=== PATIENT | male | born 1960 | race Caucasian/White ===

== ENCOUNTER 2019-07-06 07:17 | Day surgery (SDC) | payer MEDICAID ==
[2019-07-01 16:01] LABS: BASOPHILS # (AUTO) 0.1 X10'3 (0-0.2); BASOPHILS % (AUTO) 0.6 % (0-1); EOSINOPHILS # (AUTO) 0.5 X10'3 (0-0.9); LYMPHOCYTES # (AUTO) 2.4 X10'3 (1.1-4.8); LYMPHOCYTES % (AUTO) 19.7 % (21-51); MEAN CORPUSCULAR HEMOGLOBIN 29.9 PG (27.0-31.0); MEAN CORPUSCULAR HGB CONC 33.2 g/dL (33.0-36.5); MEAN CORPUSCULAR VOLUME 89.9 FL (78-98); MEAN PLATELET VOLUME 7.4 FL (7.4-10.4); MONOCYTES % (AUTO) 8.5 % (2-12); NEUTROPHILS # (AUTO) 8.1 X10'3 (1.8-7.7); NEUTROPHILS % (AUTO) 67.2 % (42-75); PRE OP HEMATOCRIT 42.9 % (42.0-52.0); PRE OP HEMOGLOBIN 14.3 g/dL (14.0-17.9); PRE OP PLATELET COUNT 329 X10'3 (140-440); RED BLOOD COUNT 4.77 X10'6 (4.70-6.10); RED CELL DISTRIBUTION WIDTH 12.3 % (11.5-14.5)
[2019-07-01 16:15] LABS: ALBUMIN 3.9 G/DL (3.4-5.0); ALBUMIN/GLOBULIN RATIO 1.1 (1.1-1.5); ALKALINE PHOSPHATASE 94 IU/L (46-116); BLOOD UREA NITROGEN 19 MG/DL (7-18); BUN/CREATININE RATIO 20.7 (5.4-32.0); CALCIUM 9.3 MG/DL (8.5-10.1); CHLORIDE 101 MMOL/L (99-107); CREATININE 0.92 MG/DL (0.60-1.10); PRE OP ALT 19 U/L (30-65); PRE OP ANION GAP 4 (8-16); PRE OP AST 14 U/L (10-37); PRE OP BILIRUB, TOTAL 0.6 MG/DL (0.0-1.0); PRE OP POTASSIUM 3.9 MMOL/L (3.4-5.1); PRE OP SODIUM 138 MMOL/L (135-145); TOTAL CARBON DIOXIDE 32.8 MMOL/L (24-32); TOTAL PROTEIN 7.6 G/DL (6.4-8.2); eGFR 85 ML/MIN
[2019-07-01 16:17] LABS: PRE OP GLUCOSE 242 MG/DL (70-104)
[2019-07-06] VITALS (12 sets, daily range): BP systolic 115–137; BP diastolic 69–91
[~2019-07-06] VITALS: Ht 162.6 cm; Wt 64.4 kg
[~2019-07-06 07:17] MED LIST: ACET-3284 PO; ATOR40TA72 PO; IBUP-1986 PO; LISI1TAB28 PO; METF-438 PO; PROM25TA14 PO; VANCOMYCIN INJ 1000 MG in NORMAL SALINE 250ml IV.SOLN IV ONE; albuterol 2.5 MG/3 ML nebule NEB ONE; cefazolin/dext.iso 2gm/100ml 100 ML IV ONE; famotidine 20mg tablet PO ONE; ringers solution, lacted 1,000 ML IV SCH
[2019-07-06 08:13] LABS: BASOPHILS % (AUTO) 0.4 % (0-1); EOSINOPHILS # (AUTO) 0.3 X10'3 (0-0.9); EOSINOPHILS % (AUTO) 2.8 % (0-6); HEMATOCRIT 40.9 % (42.0-52.0); HEMOGLOBIN 13.8 g/dl (14.0-17.9); LYMPHOCYTES % (AUTO) 20.1 % (21-51); MEAN CORPUSCULAR HEMOGLOBIN 30.2 PG (27.0-31.0); MEAN CORPUSCULAR HGB CONC 33.7 g/dL (33.0-36.5); MEAN CORPUSCULAR VOLUME 89.5 FL (78-98); MEAN PLATELET VOLUME 7.3 FL (7.4-10.4); MONOCYTES # (AUTO) 0.8 X10'3 (0-0.9); MONOCYTES % (AUTO) 8.5 % (2-12); NEUTROPHILS # (AUTO) 6.8 X10'3 (1.8-7.7); NEUTROPHILS % (AUTO) 68.2 % (42-75); PLATELET COUNT 267 X10'3 (140-440); RED BLOOD COUNT 4.57 X10'6 (4.70-6.10); RED CELL DISTRIBUTION WIDTH 12.2 % (11.5-14.5); WHITE BLOOD COUNT 9.9 X10'3 (4.5-11.0)
[2019-07-06 08:25] LABS: ALANINE AMINOTRANSFERASE 17 U/L (12-78); ALBUMIN 3.8 G/DL (3.4-5.0); ALBUMIN/GLOBULIN RATIO 1.2 (1.1-1.5); ALKALINE PHOSPHATASE 84 IU/L (46-116); ANION GAP 7 (8-16); ASPARTATE AMINO TRANSFERASE 14 U/L (10-37); BILIRUBIN,TOTAL 0.8 MG/DL (0.1-1.0); BLOOD UREA NITROGEN 24 MG/DL (7-18); BUN/CREATININE RATIO 23.8 (5.4-32.0); CALCIUM 9.1 MG/DL (8.5-10.1); CHLORIDE 102 MMOL/L (99-107); CREATININE 1.01 MG/DL (0.60-1.10); GLUCOSE 205 MG/DL (70-104); POTASSIUM 4.5 MMOL/L (3.5-5.1); SODIUM 136 MMOL/L (135-145); TOTAL CARBON DIOXIDE 27.1 MMOL/L (24-32); eGFR 76 ML/MIN
[2019-07-06] MEDS ORDERED: BUPIVAcaine/PF 2.5mg/ml (0.25%) 10ml vial ONE (09:22)
[2019-07-06] MEDS ORDERED: ringers solution, lacted 1,000 ML IV SCH (09:28)
[2019-07-06] MEDS ORDERED: morphine 2 MG/ML inj. syringe IV PRN (09:30)
[2019-07-06] MEDS ORDERED: proCHLORperazine 10 MG/2 ml inj IV PRN (09:30)
[2019-07-06] MEDS ORDERED: morphine 4 MG/ML inj SYRINge IV PRN (09:30)
[2019-07-06] MEDS ORDERED: ondansetron/PF 4mg/2ml inj IV PRN (09:30)
[2019-07-06] MEDS ORDERED: meperidine/PF 25mg/ml syringe IV PRN ×3 (09:30)
[2019-07-06] MEDS ORDERED: cloNIDine hcl/PF 100mcg/ml inj ONE (09:36)
[2019-07-06] MEDS ORDERED: midazolam 2 mg/2 ml injection ONE ×2 (09:39→09:40)
[2019-07-06] MEDS ORDERED: fentaNYL/PF 50MCG/1 ML 2ML syringe ONE (09:39)
[2019-07-06] MEDS ORDERED: propofol inj 20 ML IV ONE (09:40)
[2019-07-06] MEDS ORDERED: sevoflurane 250ml liquid IH ONE (09:42)
[2019-07-06] MEDS ORDERED: ROPIVAcaine 0.5% (5mg/ml) 30ml vial ONE (09:42)
[2019-07-06] MEDS ORDERED: dexamethasone sod phosphate 4mg/ml inj. ONE (09:44)
[2019-07-06] MEDS ORDERED: BUPIVAcaine/PF 2.5 mg/ml (0.25%) 30ml vial ONE (10:27)
[2019-07-06] MEDS ORDERED: triamcinolone acetonide 40mg/ml inj ONE (10:27)
[2019-07-06] MEDS ORDERED: ondansetron/PF 4mg/2ml inj ONE (11:25)
--- NOTE | 2019-07-06 11:46 | NUR ---
RECEIVED FROM OR VIA [facility] ACCOMPANIED BY ANESTHESIOLOGIST DR DEXTER, REPORT GIVEN. PT DROWSY BUT AROUSES EASILY WITH NO COMPLAINT OF PAIN AT THIS TIME.20 GAUGE PIV L HAND PATENT AND RUNNING LR AT 100 ML/HR. 4X4 DRESSING CDI WITH ARM SLING IN PLACE. SKIN PINK AND WARM, VSS, GOOD CAP REFILL.
--- NOTE | 2019-07-06 13:26 | NUR ---
PT AWAKE AND ALERT WITH NO COMPLAINT OF PAIN AT THIS TIME.20 GAUGE PIV L HAND DC/D CATH TIP INTACT. 4X4 DRESSING CDI WITH ARM SLING IN PLACE. SKIN PINK AND WARM, VSS, GOOD CAP REFILL. TOLERATING FLUIDS, AND VOIDING. DISCHARGE INSTRUCTIONS GIVEN AND PT VERBALIZED UNDERSTANDING. TRANSPORTED VIA WHEELCHAIR TO IN PERSONAL VEHICLE TO HOME.
== END 2019-07-06 13:26 | disposition home or self-care (01) ==
LOC: PAS 07:17
PROVIDERS: ATTEND Orthopaedic Surgery
DX: M75.01 Adhesive capsulitis of right shoulder (principal); M19.011 Primary osteoarthritis, right shoulder; M75.41 Impingement syndrome of right shoulder; I10 Essential (primary) hypertension; E78.5 Hyperlipidemia, unspecified; G89.18 Other acute postprocedural pain; E66.8 Other obesity; Z68.25 Body mass index [BMI] 25.0-25.9, adult; E11.59 Type 2 diabetes mellitus with other circulatory complications; Z79.899 Other long term (current) drug therapy; Z79.84 Long term (current) use of oral hypoglycemic drugs; Z80.3 Family history of malignant neoplasm of breast; Z83.3 Family history of diabetes mellitus; Z72.89 Other problems related to lifestyle; Z98.890 Other specified postprocedural states
CPT/HCPCS: 29824; 29826; 36415; 64415; 80053; 82948; 85025; 87635; 93005; J0735; J1100; J2250; J2405; J2704; J3010; J3301; J3370; J3490; L3650; A4215; A4565; A4618; A6250; A6449; A7000; J2795; J7120